=== PATIENT | male | born 1980 | race Caucasian/White ===

== ENCOUNTER 2020-08-18 09:38 | Outpatient (NON) | payer OTHER, SELFPAY ==
[2020-08-21 01:47] LABS: SARS-CoV-2 RNA PCR Positive
== END 2020-08-18 09:39 ==
LOC: ANHCOVIDDT 09:39
PROVIDERS: PCP Family Medicine; Visit Provider Physician Assistant
DX: U07.1 COVID-19 (principal)
CPT/HCPCS: 87635; C9803; U0003

== ENCOUNTER → 2021-11-14 13:27 | Outpatient (CLI) | payer OTHER, SELFPAY ==
--- NOTE | ~2021-11-14 | US_ITS ---
US soft tissue head and neck INDICATION: Iodine deficiency. Thyroid goiter. TECHNIQUE: Real-time sonographic images of the thyroid gland were obtained. COMPARISON: No prior studies for comparison. FINDINGS: The right thyroid lobe measures 4.7 x 1.8 x 1.7 cm. The left thyroid lobe measures 3.5 x 1 .4 x 1.4 cm. There is normal echotexture and echogenicity throughout the thyroid gland. There is a sm all 4 mm solid hypoechoic mass which is wider than tall, smooth margins and no calcifications, TR 4. Normal vascular flow is present. Isthmus measures 5 mm. IMPRESSION: 1. Small 4 mm hypoechoic left thyroid nodule, likely benign. Reviewed, dictated and finalized at location B. [employer]
== END ==
PROVIDERS: PCP Family Medicine; Visit Provider Physician Assistant
DX: E01.0 Iodine-deficiency related diffuse (endemic) goiter (principal)
CPT/HCPCS: 76536